=== PATIENT | female | born 1960 | race Two or more races ===

== ENCOUNTER 2017-03-05 22:52 | Emergency (ER) | payer MEDICAID, OTHER ==
[~2017-03-05] VITALS: Ht 160 cm; Wt 69.9 kg
[2017-03-06] MEDS ORDERED: QUEtiapine FUMARATE 100 MG TAB PO ONE (07:15)
[2017-03-06] MEDS ORDERED: LORazepam 0.5 MG TAB PO ONE (07:15)
[2017-03-06 09:43] LABS: Basophils # (auto) 0.1 uL; Basophils % (auto) 0.6 % (0.0-2.0); Eosinophils # (auto) 0.1 uL; Eosinophils % (auto) 1.5 % (0.0-7.0); Hematocrit 40.1 % (36.0-46.0); Hemoglobin 13.4 g/dL (12.2-16.2); Lymphocytes # (auto) 1.6 uL; Lymphocytes % (auto) 19.5 % (10.0-50.0); Mean Corpuscular Hemoglobin 30.5 pg (28.0-32.0); Mean Corpuscular Hgb Conc. 33.4 g/dL (32.0-36.0); Mean Corpuscular Volume 91.4 fL (80.0-100.0); Monocytes # (auto) 0.6 uL; Monocytes % (auto) 7.4 % (0.0-12.0); Neutrophils # (auto) 5.9 uL; Nucleated Red Blood Cells % 0.1 %; Platelet Count (auto) 279 10^3/uL (140-450); Red Blood Cells 4.39 10^6/uL (4.0-5.20); Red Cell Distribution Width 14.7 % (11.8-14.3); White Blood Cell 8.3 10^3/uL (4.4-10.8)
[2017-03-06 10:00] LABS: Albumin 4.2 g/dL (3.4-5.0); BUN/Creatinine Ratio 18.3; Calcium 9.7 mg/dL (8.5-10.1); Potassium 3.9 mmol/L (3.5-5.1)
[2017-03-06 10:03] LABS: Total Protein 8.9 g/dL (6.4-8.2)
[2017-03-06 10:16] LABS: Acetaminophen < 2.0 ug/mL (10-30); Salicylate 3.4 mg/dL (2.8-20.0)
[2017-03-06 11:18] VITALS: BP 138/79
== END 2017-03-06 11:31 | disposition left against medical advice (07) ==
LOC: EDBD 22:52 → ER 22:54
DX: F20.9 Schizophrenia, unspecified (principal); R45.851 Suicidal ideations; F32.9 Major depressive disorder, single episode, unspecified; Z98.51 Tubal ligation status; Z53.29 Procedure and treatment not carried out because of patient's decision for other reasons
CPT/HCPCS: 36415; 80053; 80329; 85025

== ENCOUNTER 2017-04-26 09:27 | Emergency (ER) | payer OTHER, MEDICAID ==
[~2017-04-26] VITALS: Ht 162.6 cm; Wt 61.7 kg
[2017-04-26 09:52] VITALS: BP 102/69
[2017-04-26] MEDS ORDERED: KETOROLAC TROMETH 60MG/2ML VIAL IM ONE (11:30)
[2017-04-26] MEDS ORDERED: diphenhdrAMINE HCL 50 MG/1 ML VL IM ONE (11:30)
== END 2017-04-26 11:50 | disposition home or self-care (01) ==
LOC: ER 09:27
DX: G89.29 Other chronic pain (principal); M54.2 Cervicalgia; M54.9 Dorsalgia, unspecified; F17.210 Nicotine dependence, cigarettes, uncomplicated; F12.10 Cannabis abuse, uncomplicated; Z88.2 Allergy status to sulfonamides; Z98.51 Tubal ligation status
CPT/HCPCS: 96372; 99284; J1200; J1885